=== PATIENT | male | born 1995 | race African-American/Black ===

== ENCOUNTER 2024-08-30 01:37 | Emergency (ER) | payer OTHER ==
[~2024-08-30] VITALS: Ht 182.9 cm; Wt 71.2 kg
[2024-08-30 02:37] VITALS: BP 108/62; O2SAT 100
[2024-09-01 02:06] LABS: CHLAMYDIA TRACHOMATIS NAA Negative (Negative); NEISSERIA GONORRHOEAE NAA Negative (Negative)
== END 2024-08-30 02:37 | disposition home or self-care (01) ==
LOC: ER 01:41
DX: N50.89 Other specified disorders of the male genital organs (principal)
CPT/HCPCS: 87491; 87591; A4606; A4663